=== PATIENT | male | born 1960 | race Caucasian/White ===

== ENCOUNTER → 2018-11-03 | Outpatient (CLI) | payer OTHER | LOC: BMCIMAGING 08:55 | PROVIDERS: ATTEND Orthopaedic Surgery | DX: M25.552 Pain in left hip (principal) ==

== ENCOUNTER → 2018-12-01 | Outpatient (CLI) | payer OTHER | LOC: CIMAGING 07:57 | PROVIDERS: ATTEND Orthopaedic Surgery | DX: Z01.818 Encounter for other preprocedural examination (principal); M16.12 Unilateral primary osteoarthritis, left hip; M48.062 Spinal stenosis, lumbar region with neurogenic claudication; M48.07 Spinal stenosis, lumbosacral region; M51.36 Other intervertebral disc degeneration, lumbar region; M51.37 Other intervertebral disc degeneration, lumbosacral region | CPT/HCPCS: 73700-PO ==

== ENCOUNTER 2018-12-13 07:18 | Inpatient (IN) | payer OTHER ==
--- NOTE | 2018-12-13 06:42 | PDIAF ---
- Diagnosis Diagnosis: left hip djd Code Status: Full Code - Medication Management Discharge Medications: electronically signed and located in the Home Medication List. - Orders Services needed: Home Care, Physical Therapy Home Care Face to Face: I certify that this patient was under my care and that I had the required aofa-qm-wfch encounter meeting the encounter requirements on the discharge day. My findings support the fact that the patient is homebound as defined in Home Care Face to Face Continued: CMS Chapter 7 Medicare Benefits Manual 30.1.1 , The condition of the patient is such that there exists a normal inability to leave home and consequently, leaving home would require a considerable and taxing effort. Diet Recommendation: no restrictions on diet Diet Texture: Regular Texture Diet Additional Instructions: TOTAL JOINT ARTHROPLASTY DISCHARGE INSTRUCTIONS 1. Your surgeon follows the [facility] protocol for reducing your risk of DVT (blood clots) following surgery. Medication will be ordered to prevent blood clots. A sudden increase in calf pain and/or swelling could indicate a blood clot in your leg. If this occurs, please call your surgeon or his/her facility assistant. An ultrasound of the leg may be necessary to diagnose a blood clot. If you have conditions that make you a higher risk for blood clots, your surgeon may use more aggressive ways to prevent them. Notify your surgeon if you think you are a high risk for blood clots. 2. Wear your white surgical stockings (RODNEY hose) for 2 weeks. This decreases your swelling and may help prevent blood clots. It is ok to remove RODNEY hose at night time to give your legs a break. 3. Swelling and bruising in the surgical leg is common. If you feel that it is excessive, please notify your surgeon. 4. Elevate your surgical leg with the ankle above the hip several times every day. Please keep the leg straight when you elevate by putting pillows under your foot. Do not put pillows under your knee. This will make being able to fully straighten more difficult. This is uncomfortable, but try to do it as much as possible. 5. For total knee replacements use compressive wrap on your knee for 3-5 days after surgery, then you can discontinue it. 6. Use a walker or crutches for 1-2 weeks. Progress your weight-bearing as tolerated. You may start to use a cane when you feel stable and safe. 7. You will receive physical therapy instructions in the hospital. Continue those exercises at home. There are additional exercises in the total joint booklet you were given before surgery. Outpatient physical therapy will begin 7- 10 days after surgery. Please schedule this in advance. 8. Use ice on your knee at least 3-5 times every day for 30 minutes. This helps reduce pain and swelling. Also use it at night before falling asleep. 9. Leave your surgical dressing in place for 2 weeks. Your dressing is water resistant, but not waterproof. Cover it with Saran Wrap or Pcmjf-e-Rvie before showering. You may shower as soon as you feel safe entering a shower. If you notice bleeding from your incision 2 or 3 days after surgery, please notify your surgeon. 10. Due to narcotics, decreased activity and altered diet, most patients experience constipation after surgery. Use wwbw-xwq-lztyusr stool softeners while you are on narcotics. 11. You may drive a car when you are comfortable bearing weight, have good muscular control of your leg and are off narcotics. This usually occurs 2-4 weeks after surgery, depending on which leg was operated on. 12. If there are questions not addressed here, please refer the [facility] book given for more information. If you still have questions, please contact your surgeon s office. 13. If you have a life-threatening emergency, please call 911 and go to the emergency room immediately. For non-life threatening emergencies, please call your physicians office for advice before going to the emergency room. - Follow Up Care Current Providers and Referrals: Lisa Adamson MD [Primary Care Provider] - Taras Lowery MD [Medical Doctor] -
--- NOTE | 2018-12-13 06:42 | PDHPUP ---
History & Physical Update H&P update statement: This history and physical update is based on an assessment of the patient which was completed after admission or registration (within 24 hours), but prior to the surgery/procedure. H&P update: no change in patient's condition since H&P completed
[~2018-12-13 07:18] MED LIST: ROPIVACAINE 0.2% 80 MG, EPINEPHrine 0.2 MG, KETOROLAC TROMETHAMINE 30 MG in SYRINGE 0 ML IU ONE; TRANEXAMIC ACID 1,000 MG in NS 100 ML IV ONE
[2018-12-13] MEDS ORDERED: ACETAMINOPHEN 325 MG TAB PO ONE (07:47)
[2018-12-13] MEDS ORDERED: ceFAZolin 3 GM in D5W 100 ML IV ONE (07:47)
[2018-12-13] MEDS ORDERED: FAMOTIDINE 20 MG TAB PO ONE (07:47)
[2018-12-13] MEDS ORDERED: LR 1,000 ML IV ONE (07:47)
[2018-12-13] MEDS ORDERED: ceFAZolin 2 GM/DEXTROSE 100 ML IV ONE (08:00)
[2018-12-13] MEDS ORDERED: MIDAZOLAM 2 MG/2 ML VIAL IVP ONE (08:51)
[2018-12-13] MEDS ORDERED: ceFAZolin 1 GM/5 ML SYR ONE (09:16)
[2018-12-13] MEDS ORDERED: PROPOFOL/EMULSION 500 MG/50 ML BOTTLE IV ONE ×2 (09:31→11:44)
[2018-12-13] MEDS ORDERED: BUPIVACAINE/DEXTROSE 7.5MG/ML 2 ML SPINAL AMP SP ONE (09:35)
--- NOTE | 2018-12-13 09:35 | PDANEPAE ---
ANE Past Medical History - Cardiovascular History Hx Hypertension: No Hx Arrhythmias: No Hx Chest Pain: No Hx Coronary Artery / Peripheral Vascular Disease: No Hx CHF / Valvular Disease: No Hx Palpitations: No - Pulmonary History Hx COPD: No Hx Asthma/Reactive Airway Disease: No Hx Recent Upper Respiratory Infection: No Hx Oxygen in Use at Home: No Hx Sleep Apnea: No Sleep Apnea Screening Result - Last Documented: Negative - Neurologic History Hx Cerebrovascular Accident: No Hx Seizures: No Hx Dementia: No - Endocrine History Hx Diabetes: No - Renal History Hx Renal Disorders: No Renal History Comment: PASSED KIDNEY STONE 09/2017 - Liver History Hx Hepatic Disorders: No - Neurological & Psychiatric Hx Hx Neurological and Psychiatric Disorders: No - Cancer History Hx Cancer: Yes Cancer History Comment: MELANOMA - Congenital Disorder History Hx Congenital Disorders: No - GI History Hx Gastrointestinal Disorders: Yes Gastrointestinal History Comment: HX OF COLON POLYPS - Other Health History Other Health History: OSTEOARTHRITIS - Chronic Pain History Chronic Pain: Yes (LT HIP) - Surgical History Prior Surgeries: LT KNEE ACL. LT KNEE SCOPE. REMVL FACIAL MELANOMA/WITH SN REMVL LT SIDE OF NECK. LUMBAR GINA X2. ANE Review of Systems Review of Systems: - Exercise capacity METS (RN): 5 METS ANE Patient History - Allergies Allergies/Adverse Reactions: morphine Allergy (Verified 11/19/18 09:55) Itching bees Allergy (Uncoded 11/19/18 09:55) - Home Medications Home medications: home medication list seen and reviewed Home Medications: Acetaminophen [Tylenol 325mg (*)] 325 mg PO Q6 PRN 11/19/18 [Last Taken 12/12/18 ] Cholecalciferol Vit D3 [Vitamin D3 (*)] 1,000 units PO DAILY 11/19/18 [Last Taken 12/12/18] Ibuprofen [Motrin (*)] 200 mg PO DAILY PRN 11/19/18 [Last Taken 1 Week Ago ~] oxyCODONE/APAP 5/325 [Percocet 5/325 (*)] 1 - 2 tab PO Q4-6PRN PRN 11/26/18 [ Last Taken 12/12/18] - NPO status NPO Since - Liquids (Date): 12/12/18 NPO Since - Liquids (Time): 23:30 NPO Since - Solids (Date): 12/12/18 NPO Since - Solids (Time): 23:30 - Smoking Hx Smoking Status: Never smoked ANE Labs/Vital Signs - Labs - CBC Platelet Count: 268 - Vital Signs Vital Signs: reviewed preoperatively; see RN documention for details Blood Pressure: 108/73 Heart Rate: 63 Respiratory Rate: 95 Height: 180.34 cm Weight: 83.915 kg ANE Physical Exam - Airway Neck exam: FROM Mallampati Score: Class 1 Mouth exam: normal dental/mouth exam - Pulmonary Pulmonary: clear to auscultation - Cardiovascular Cardiovascular: regular rate and rhythym - ASA Status ASA Status: II ANE Anesthesia Plan Anesthesia Plan: spinal
--- NOTE | 2018-12-13 10:08 | PDGENHP ---
History & Physical Chief Complaint: left hip djd History of Present Illness: pain in hip Pertinent Past, Social, Family History: none. see chart Cardiorespiratory Assessment: demetra. good
[2018-12-13] MEDS ORDERED: ePHEDrine SULFATE 25 MG/5 ML SYR ONE (10:58)
[2018-12-13] MEDS ORDERED: PHENYLEPHRINE HCL 100 MCG/ML SYR ONE (11:16)
[2018-12-13] MEDS ORDERED: LACTULOSE 20 GM/30 ML UDCUP PO PRN (12:30)
[2018-12-13] MEDS ORDERED: POLYETHYLENE GLYCOL 3350 17 GM PKT PO PRN (12:30)
[2018-12-13] MEDS ORDERED: MAGNESIUM HYDROXIDE 30 ML UDCUP PO PRN (12:30)
[2018-12-13] MEDS ORDERED: PROMETHAZINE HCL 25 MG/ML INJ IVP PRN (12:30)
[2018-12-13] MEDS ORDERED: ONDANSETRON 4 MG/2 ML VIAL IVP PRN (12:30)
[2018-12-13] MEDS ORDERED: ONDANSETRON DISINTEGRATING 4 MG TAB PO PRN (12:30)
[2018-12-13] MEDS ORDERED: DIPHENOXYLATE/ATROPINE LOMOTIL 1 TAB PO PRN (12:30)
[2018-12-13] MEDS ORDERED: LR 1,000 ML IV SCH (12:30)
[2018-12-13] MEDS ORDERED: BISACODYL 10 MG SUPP PR PRN (12:30)
[2018-12-13] MEDS ORDERED: PROMETHAZINE HCL 25 MG SUPPR PR PRN (12:30)
[2018-12-13] MEDS ORDERED: diphenhydrAMINE 25 MG CAP PO PRN (12:30)
[2018-12-13] MEDS ORDERED: METOCLOPRAMIDE 10 MG/2 ML VIAL IVP PRN (12:30)
--- NOTE | 2018-12-13 12:30 | POSTOPPROG ---
Post Op Note Date of Operation: 12/13/18 Surgeon: Taras Lowery Human Resource Adviser: camille Anesthesiologist: joana Anesthesia: Spinal Pre-op Diagnosis: left hip djd Post-op Diagnosis: same Indication: same Procedure: left demetra Inf/Abcess present in the surg proc area at time of surgery?: No Depth: Deep Incisional (Fascial) EBL: 100-500 Drains: Hemovac
[2018-12-13] MEDS ORDERED: ONDANSETRON 4 MG/2 ML VIAL ONE (13:14)
--- NOTE | 2018-12-13 13:36 | POSTANESTH ---
Post Anesthetic Evaluation Cardiovascular Status: Normal, Stable Respiratory Status: Normal, Stable Level of Consciousness/Mental Status: Can Participate in Eval Pain Control: Adequate, Prn Tx Ordered Nausea/Vomiting Control: Adequate, Prn Tx Ordered Complications Possibly Related to Anesthesia: None Noted
--- NOTE | 2018-12-13 14:51 | PDMN ---
Medical Necessity Medical necessity: [facility] [place] S560 hip arthroplasty IPO OP L AL -- [id number] JEROME FROM 12/13-12/15
[2018-12-13] MEDS: oxyCODONE IR 5 MG TAB PO PRN ×3 (16:35→22:56)
[2018-12-13] MEDS: TRANEXAMIC ACID 650 MG TAB PO SCH (17:21)
[2018-12-13] MEDS: CYCLOBENZAPRINE 10 MG TAB PO PRN (17:27)
[2018-12-13] MEDS: ACETAMINOPHEN 325 MG TAB PO SCH (18:27)
[2018-12-13] MEDS: ceFAZolin 2 GM/DEXTROSE 100 ML IV SCH (18:28)
[2018-12-13] MEDS: SENNOSIDES/DOCUSATE SODIUM TAB PO SCH (20:34)
[2018-12-13] MEDS: FAMOTIDINE 20 MG TAB PO SCH (20:36)
[2018-12-13] MEDS: traMADol 50 MG TAB PO PRN (20:36)
[2018-12-13] MEDS: ASPIRIN 325 MG TAB PO SCH (20:36)
[2018-12-13] MEDS: TEMAZEPAM 15 MG CAP PO PRN (22:58)
[2018-12-14] MEDS: ACETAMINOPHEN 325 MG TAB PO SCH ×3 (00:46→14:13)
[2018-12-14] MEDS: TRANEXAMIC ACID 650 MG TAB PO SCH ×2 (00:46→08:27)
[2018-12-14] MEDS: TEMAZEPAM 15 MG CAP PO PRN (00:46)
[2018-12-14] MEDS: ceFAZolin 2 GM/DEXTROSE 100 ML IV SCH (02:07)
[2018-12-14] MEDS: oxyCODONE IR 5 MG TAB PO PRN ×3 (02:07→10:27)
--- NOTE | 2018-12-14 07:47 | PDIAF ---
- Diagnosis Diagnosis: left hip djd Code Status: Full Code - Medication Management Discharge Medications: electronically signed and located in the Home Medication List. - Orders Services needed: Home Care, Physical Therapy Home Care Face to Face: I certify that this patient was under my care and that I had the required tdap-qz-qibl encounter meeting the encounter requirements on the discharge day. My findings support the fact that the patient is homebound as defined in Home Care Face to Face Continued: CMS Chapter 7 Medicare Benefits Manual 30.1.1 , The condition of the patient is such that there exists a normal inability to leave home and consequently, leaving home would require a considerable and taxing effort. Diet Recommendation: no restrictions on diet Diet Texture: Regular Texture Diet Additional Instructions: TOTAL JOINT ARTHROPLASTY DISCHARGE INSTRUCTIONS 1. Your surgeon follows the [facility] protocol for reducing your risk of DVT (blood clots) following surgery. Medication will be ordered to prevent blood clots. A sudden increase in calf pain and/or swelling could indicate a blood clot in your leg. If this occurs, please call your surgeon or his/her housing assistant property manager. An ultrasound of the leg may be necessary to diagnose a blood clot. If you have conditions that make you a higher risk for blood clots, your surgeon may use more aggressive ways to prevent them. Notify your surgeon if you think you are a high risk for blood clots. 2. Wear your white surgical stockings (RODNEY hose) for 2 weeks. This decreases your swelling and may help prevent blood clots. It is ok to remove RODNEY hose at night time to give your legs a break. 3. Swelling and bruising in the surgical leg is common. If you feel that it is excessive, please notify your surgeon. 4. Elevate your surgical leg with the ankle above the hip several times every day. Please keep the leg straight when you elevate by putting pillows under your foot. Do not put pillows under your knee. This will make being able to fully straighten more difficult. This is uncomfortable, but try to do it as much as possible. 5. For total knee replacements use compressive wrap on your knee for 3-5 days after surgery, then you can discontinue it. 6. Use a walker or crutches for 1-2 weeks. Progress your weight-bearing as tolerated. You may start to use a cane when you feel stable and safe. 7. You will receive physical therapy instructions in the hospital. Continue those exercises at home. There are additional exercises in the total joint booklet you were given before surgery. Outpatient physical therapy will begin 7- 10 days after surgery. Please schedule this in advance. 8. Use ice on your knee at least 3-5 times every day for 30 minutes. This helps reduce pain and swelling. Also use it at night before falling asleep. 9. Leave your surgical dressing in place for 2 weeks. Your dressing is water resistant, but not waterproof. Cover it with Saran Wrap or Tpcsy-h-Axco before showering. You may shower as soon as you feel safe entering a shower. If you notice bleeding from your incision 2 or 3 days after surgery, please notify your surgeon. 10. Due to narcotics, decreased activity and altered diet, most patients experience constipation after surgery. Use dejm-bqj-jxleldx stool softeners while you are on narcotics. 11. You may drive a car when you are comfortable bearing weight, have good muscular control of your leg and are off narcotics. This usually occurs 2-4 weeks after surgery, depending on which leg was operated on. 12. If there are questions not addressed here, please refer the [facility] book given for more information. If you still have questions, please contact your surgeon s office. 13. If you have a life-threatening emergency, please call 911 and go to the emergency room immediately. For non-life threatening emergencies, please call your physicians office for advice before going to the emergency room. - Follow Up Care Current Providers and Referrals: Lisa Adamson MD [Primary Care Provider] - Taras Lowery MD [Medical Doctor] -
--- NOTE | 2018-12-14 07:49 | SOAPPROG ---
SOAP Progress Note Assessment/Plan: Assessment: s/p demetra Plan:wbat anterior hip precautions pain control f/u at two weeks seek attn for increasing complaints dvt precautions reviewed 12/14/18 07:47 Subjective: pain no cp or sob toñito po Objective: Vital Signs Temp Pulse Resp BP Pulse Ox 36.6 C 71 16 99/60 L 94 12/13/18 23:20 12/13/18 23:20 12/13/18 23:20 12/13/18 23:20 12/13/18 23:20 Laboratory Results 12/14/18 04:30 12/13/18 12/14/18 12/15/18 05:59 05:59 05:59 Intake Total 1340 Output Total 2098 130 Balance -758 -130 dressing intact intact pf,df,ehl toes warm and pink neg homans stephanie xrays anatomic alignement no fx or lucency ICD10 Worksheet Patient Problems: Problems Problem Status Onset Hip arthritis Acute - ICD10 Problem Qualifiers (1) Hip arthritis
[2018-12-14 08:12] VITALS: BP 103/70
[2018-12-14] MEDS: SENNOSIDES/DOCUSATE SODIUM TAB PO SCH (08:27)
[2018-12-14] MEDS: FAMOTIDINE 20 MG TAB PO SCH (08:27)
[2018-12-14] MEDS: ASPIRIN 325 MG TAB PO SCH (08:28)
[2018-12-14] MEDS: traMADol 50 MG TAB PO PRN (08:34)
[2018-12-14] MEDS: CYCLOBENZAPRINE 10 MG TAB PO PRN (10:36)
--- NOTE | 2018-12-14 13:48 | ASMTLACE ---
LACE Length of stay for Answers: 2 days current admission Acuity / Level of Answers: Yes Care: Did the patient have an inpatient admission? Comorbidities - select Answers: Opioid dependence all that apply / Chronic pain # of Emergency department Answers: 0 visits in the last 6 months Score: 9 Date Signed: 12/14/2018 01:44 PM Electronically Signed By:VICENTA Bahena
--- NOTE | 2018-12-14 13:50 | ASMTCMCOM ---
CM Note CM Note Notes: Pt had planned hip surgery. Pt medically stable for d/c with [facility] PT. Orders to be obtained via [facility]. Pt d/c address/phone verified. Date Signed: 12/14/2018 01:46 PM Electronically Signed By:VICENTA Bahena
--- NOTE | 2018-12-14 15:04 | ASDISCHSUM ---
Discharge Information Plan Status:Home with Home Health Medically Cleared to Leave: Discharge Date:12/14/2018 02:58 PM CM D/C Disposition: ADT D/C Disposition:Home Health Service Projected Discharge Date:12/14/2018 11:00 AM Transportation at D/C: Discharge Delay Reason: Follow-Up Date:12/14/2018 11:00 AM Discharge Slot: Final Diagnosis: Placement Information Referral Type:*Home Health Care Services Referral ID:[id number] Provider Name:[facility] Address 1:[address] Address 2: City:[place] Selection Factors: State:[place] Patient Contact Information Contact Name:LAUREN Relationship: Address:[address] [place] [address] Work Phone: City:[place] Alternate Phone: State/Zip Code:[place] [address] Email: Financial Information Financial Class:[employer] Primary Plan Desc:[facility] Primary Plan Number:[id number] Secondary Plan Desc: Secondary Plan Number: Assessment Information LACE LACE Length of stay for Answers: 2 days current admission Acuity / Level of Answers: Yes Care: Did the patient have an inpatient admission? Comorbidities - select Answers: Opioid dependence all that apply / Chronic pain # of Emergency department Answers: 0 visits in the last 6 months Score: 9 Date Signed: 12/14/2018 01:44 PM Electronically Signed By:VICENTA Bahena [facility] CM Progress Note CM Note CM Note Notes: Pt had planned hip surgery. Pt medically stable for d/c with [facility] PT. Orders to be obtained via [facility]. Pt d/c address/phone verified. Date Signed: 12/14/2018 01:46 PM Electronically Signed By:VICENTA Bahena Intervention Information
== END 2018-12-14 14:58 | disposition home health service (06) | DRG 470 ==
LOC: F1N 07:18 → F3N 14:09
PROVIDERS: ADMIT Orthopaedic Surgery; ATTEND Orthopaedic Surgery
PROC: 0SRB04Z Replacement of Left Hip Joint with Ceramic on Polyethylene Synthetic Substitute, Open Approach (ICD-10-PCS; principal; 2018-12-13 09:45)
DX: M16.12 Unilateral primary osteoarthritis, left hip (principal)
CPT/HCPCS: 97116-GP; 97161-GP; 97165-GO; 97530-GP; 97535-GO; J0171; J0690; J1885; J2250; J2370; J2405; J2704; J2795

== ENCOUNTER → 2018-12-16 | Outpatient (CLI) | payer OTHER | LOC: BMCIMAGING 08:25 | PROVIDERS: ATTEND Orthopaedic Surgery | DX: Z47.1 Aftercare following joint replacement surgery (principal); Z96.642 Presence of left artificial hip joint ==

== ENCOUNTER 2018-12-17 07:39 | Inpatient (IN) | payer OTHER ==
--- NOTE | 2018-12-17 06:22 | PDGENHP ---
History & Physical Chief Complaint: left hip pain History of Present Illness: pain across left hip following demetra with subsidence of 3 mm of femoral stem on repeat xray Pertinent Past, Social, Family History: see chart Relevant Physical Exam: 3 mm short left lower ext. incision well healed. intact pf,df,ehl. toes warm and pink Cardiorespiratory Assessment: good
--- NOTE | 2018-12-17 06:23 | PDIAF ---
- Diagnosis Diagnosis: left demetra Code Status: Full Code - Medication Management Discharge Medications: electronically signed and located in the Home Medication List. - Orders Services needed: Home Care, Physical Therapy Home Care Face to Face: I certify that this patient was under my care and that I had the required ihbv-wt-qurv encounter meeting the encounter requirements on the discharge day. My findings support the fact that the patient is homebound as defined in Home Care Face to Face Continued: CMS Chapter 7 Medicare Benefits Manual 30.1.1 , The condition of the patient is such that there exists a normal inability to leave home and consequently, leaving home would require a considerable and taxing effort. Diet Recommendation: no restrictions on diet Diet Texture: Regular Texture Diet Additional Instructions: TDWB ONLY ANTERIOR HIP PRECAUTIONS otherwise: TOTAL JOINT ARTHROPLASTY DISCHARGE INSTRUCTIONS 1. Your surgeon follows the [facility] protocol for reducing your risk of DVT (blood clots) following surgery. Medication will be ordered to prevent blood clots. A sudden increase in calf pain and/or swelling could indicate a blood clot in your leg. If this occurs, please call your surgeon or his/her home care assistant. An ultrasound of the leg may be necessary to diagnose a blood clot. If you have conditions that make you a higher risk for blood clots, your surgeon may use more aggressive ways to prevent them. Notify your surgeon if you think you are a high risk for blood clots. 2. Wear your white surgical stockings (RODNEY hose) for 2 weeks. This decreases your swelling and may help prevent blood clots. It is ok to remove RODNEY hose at night time to give your legs a break. 3. Swelling and bruising in the surgical leg is common. If you feel that it is excessive, please notify your surgeon. 4. Elevate your surgical leg with the ankle above the hip several times every day. Please keep the leg straight when you elevate by putting pillows under your foot. Do not put pillows under your knee. This will make being able to fully straighten more difficult. This is uncomfortable, but try to do it as much as possible. 5. For total knee replacements use compressive wrap on your knee for 3-5 days after surgery, then you can discontinue it. 6. Use a walker or crutches for 1-2 weeks. Progress your weight-bearing as tolerated. You may start to use a cane when you feel stable and safe. 7. You will receive physical therapy instructions in the hospital. Continue those exercises at home. There are additional exercises in the total joint booklet you were given before surgery. Outpatient physical therapy will begin 7- 10 days after surgery. Please schedule this in advance. 8. Use ice on your knee at least 3-5 times every day for 30 minutes. This helps reduce pain and swelling. Also use it at night before falling asleep. 9. Leave your surgical dressing in place for 2 weeks. Your dressing is water resistant, but not waterproof. Cover it with Saran Wrap or Faxba-g-Lvmh before showering. You may shower as soon as you feel safe entering a shower. If you notice bleeding from your incision 2 or 3 days after surgery, please notify your surgeon. 10. Due to narcotics, decreased activity and altered diet, most patients experience constipation after surgery. Use ihnx-cra-tgudkqf stool softeners while you are on narcotics. 11. You may drive a car when you are comfortable bearing weight, have good muscular control of your leg and are off narcotics. This usually occurs 2-4 weeks after surgery, depending on which leg was operated on. 12. If there are questions not addressed here, please refer the [facility] book given for more information. If you still have questions, please contact your surgeon s office. 13. If you have a life-threatening emergency, please call 911 and go to the emergency room immediately. For non-life threatening emergencies, please call your physicians office for advice before going to the emergency room. - Follow Up Care Current Providers and Referrals: Lisa Adamson MD [Primary Care Provider] - Taras Lowery MD [Medical Doctor] -
[~2018-12-17 07:39] MED LIST changes: +ROPIVACAINE 0.2% 80 MG, EPINEPHrine 0.2 MG, KETOROLAC TROMETHAMINE 30 MG, morphINE 10 M... IU ONE
[2018-12-17] MEDS ORDERED: FAMOTIDINE 20 MG TAB PO ONE (07:49)
[2018-12-17] MEDS ORDERED: ceFAZolin 2 GM/DEXTROSE 100 ML IV ONE (07:49)
[2018-12-17] MEDS ORDERED: ACETAMINOPHEN 325 MG TAB PO ONE (07:49)
[2018-12-17] MEDS ORDERED: LR 1,000 ML IV ONE (07:51)
[2018-12-17] MEDS ORDERED: POLYMYXIN B SULFATE 500,000 UNIT/10 ML SYR IRR ONE (08:16)
[2018-12-17] MEDS ORDERED: BACITRACIN 50,000 UNITS/10 ML SYR IRR ONE (08:16)
[2018-12-17] MEDS ORDERED: fentaNYL 250 MCG/5 ML INJ ONE (09:29)
[2018-12-17] MEDS ORDERED: PROPOFOL/EMULSION 500 MG/50 ML BOTTLE IV ONE (09:29)
[2018-12-17] MEDS ORDERED: MIDAZOLAM 2 MG/2 ML VIAL ONE (09:31)
[2018-12-17] MEDS ORDERED: BUPIVACAINE/DEXTROSE 7.5MG/ML 2 ML SPINAL AMP SP ONE (09:55)
[2018-12-17] MEDS ORDERED: HYDROmorphONE/DILAUDID 1 MG/ML INJ IVP PRN (10:37)
[2018-12-17] MEDS ORDERED: fentaNYL 100 MCG/2 ML INJ IVP PRN (10:37)
[2018-12-17] MEDS ORDERED: LABETALOL HCL 5 MG/ML 20 ML MDV IVP PRN (10:37)
[2018-12-17] MEDS ORDERED: LR 500 ML IV PRN (10:37)
[2018-12-17] MEDS ORDERED: NALOXONE HCL 0.4 MG/ML INJ IVP PRN (10:37)
[2018-12-17] MEDS ORDERED: ONDANSETRON 4 MG/2 ML VIAL IVP PRN ×2 (10:37→13:00)
[2018-12-17] MEDS ORDERED: MEPERIDINE 25 MG/0.5 ML AMP IVP PRN (10:37)
[2018-12-17] MEDS ORDERED: DEXAMETHASONE 4 MG/ML VIAL IVP PRN (10:37)
[2018-12-17] MEDS ORDERED: HYDROCODONE/APAP 5/325 TAB PO PRN (10:37)
[2018-12-17] MEDS ORDERED: MIDAZOLAM 2 MG/2 ML VIAL IVP ONE (10:39)
--- NOTE | 2018-12-17 10:41 | PDANEPAE ---
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 Otherwise healthy. ANE Past Medical History - Cardiovascular History Hx Hypertension: No Hx Arrhythmias: No Hx Chest Pain: No Hx Coronary Artery / Peripheral Vascular Disease: No Hx CHF / Valvular Disease: No Hx Palpitations: No - Pulmonary History Hx COPD: No Hx Asthma/Reactive Airway Disease: No Hx Recent Upper Respiratory Infection: No Hx Oxygen in Use at Home: No Hx Sleep Apnea: No Sleep Apnea Screening Result - Last Documented: Negative - Neurologic History Hx Cerebrovascular Accident: No Hx Seizures: No Hx Dementia: No - Endocrine History Hx Diabetes: No - Renal History Hx Renal Disorders: No Renal History Comment: PASSED KIDNEY STONE 09/2017 - Liver History Hx Hepatic Disorders: No - Neurological & Psychiatric Hx Hx Neurological and Psychiatric Disorders: No - Cancer History Hx Cancer: Yes Cancer History Comment: MELANOMA - Congenital Disorder History Hx Congenital Disorders: No - GI History Hx Gastrointestinal Disorders: Yes Gastrointestinal History Comment: HX OF COLON POLYPS - Other Health History Other Health History: OSTEOARTHRITIS. wears glasses - Chronic Pain History Chronic Pain: Yes (LT HIP) - Surgical History Prior Surgeries: 12/13/18 left hip arthroplasty with Repine. LT KNEE ACL. LT KNEE SCOPE. REMVL FACIAL MELANOMA/WITH SN REMVL LT SIDE OF NECK. LUMBAR GIAN X2. ANE Review of Systems Review of systems is: negative Review of Systems: - Exercise capacity METS (RN): 5 METS ANE Patient History - Allergies Allergies/Adverse Reactions: morphine Allergy (Verified 12/16/18 16:03) Itching bees Allergy (Uncoded 12/16/18 16:03) - Home Medications Home Medications: Acetaminophen [Tylenol 325mg (*)] 325 mg PO Q6 PRN 11/19/18 [Last Taken 01:00] Cholecalciferol Vit D3 [Vitamin D3 (*)] 1,000 units PO DAILY 11/19/18 [Last Taken 12/12/18] Ibuprofen [Motrin (*)] 200 mg PO DAILY PRN 11/19/18 [Last Taken 12/14/18] oxyCODONE/APAP 5/325 [Percocet 5/325 (*)] 1 - 2 tab PO Q4-6PRN PRN 11/26/18 [ Last Taken 12/12/18] - NPO status NPO Since - Liquids (Date): 12/17/18 NPO Since - Liquids (Time): 05:30 NPO Since - Solids (Date): 12/16/18 NPO Since - Solids (Time): 22:30 - Smoking Hx Smoking Status: Never smoked - Family Anes Hx Family Hx Anesthesia Complications: none ANE Labs/Vital Signs - Vital Signs Blood Pressure: 111/75 Heart Rate: 82 Respiratory Rate: 18 O2 Sat (%): 92 Height: 180.34 cm Weight: 83.915 kg ANE Physical Exam - Airway Neck exam: FROM Mallampati Score: Class 2 Mouth exam: normal dental/mouth exam - Pulmonary Pulmonary: no respiratory distress - Cardiovascular Cardiovascular: regular rate and rhythym - ASA Status ASA Status: I ANE Anesthesia Plan Anesthesia Plan: spinal
[2018-12-17] MEDS ORDERED: ONDANSETRON DISINTEGRATING 4 MG TAB PO PRN (13:00)
[2018-12-17] MEDS ORDERED: DIPHENOXYLATE/ATROPINE LOMOTIL 1 TAB PO PRN (13:00)
[2018-12-17] MEDS ORDERED: POLYETHYLENE GLYCOL 3350 17 GM PKT PO PRN (13:00)
[2018-12-17] MEDS ORDERED: METOCLOPRAMIDE 10 MG/2 ML VIAL IVP PRN (13:00)
[2018-12-17] MEDS ORDERED: CYCLOBENZAPRINE 10 MG TAB PO PRN (13:00)
[2018-12-17] MEDS ORDERED: LACTULOSE 20 GM/30 ML UDCUP PO PRN (13:00)
[2018-12-17] MEDS ORDERED: PROMETHAZINE HCL 25 MG/ML INJ IVP PRN (13:00)
[2018-12-17] MEDS ORDERED: LR 1,000 ML IV SCH (13:00)
[2018-12-17] MEDS ORDERED: BISACODYL 10 MG SUPP PR PRN (13:00)
[2018-12-17] MEDS ORDERED: PROMETHAZINE HCL 25 MG SUPPR PR PRN (13:00)
[2018-12-17] MEDS ORDERED: MAGNESIUM HYDROXIDE 30 ML UDCUP PO PRN (13:00)
[2018-12-17] MEDS ORDERED: diphenhydrAMINE 25 MG CAP PO PRN (13:00)
[2018-12-17] MEDS ORDERED: TEMAZEPAM 15 MG CAP PO PRN (13:00)
--- NOTE | 2018-12-17 13:05 | POSTOPPROG ---
Post Op Note Date of Operation: 12/17/18 Surgeon: Taras Lowery Microfilm Processor: camille Anesthesiologist: don Anesthesia: Spinal Pre-op Diagnosis: failed left demetra Post-op Diagnosis: same Indication: same Procedure: revision femoral component left hip Inf/Abcess present in the surg proc area at time of surgery?: No Depth: Deep Incisional (Fascial) EBL: 100-500 Drains: Hemovac
--- NOTE | 2018-12-17 13:38 | PDMN ---
Medical Necessity Medical necessity: [facility] [place] S560 Hip Arthroplasty, A-2 days: 58 yo s/p total hip revision for recent failed AL. [facility] IP only. Admit IP status.
[2018-12-17] MEDS: oxyCODONE IR 5 MG TAB PO PRN ×4 (15:29→23:40)
[2018-12-17] MEDS: ceFAZolin 2 GM/DEXTROSE 100 ML IV SCH (17:22)
[2018-12-17] MEDS: TRANEXAMIC ACID 650 MG TAB PO SCH ×2 (17:22→20:30)
[2018-12-17] MEDS: HYDROmorphONE/DILAUDID 1 MG/ML INJ IVP PRN (18:30)
[2018-12-17] MEDS: ACETAMINOPHEN 325 MG TAB PO SCH (18:31)
--- NOTE | 2018-12-17 18:44 | SOAPPROG ---
SOAP Progress Note Assessment/Plan: Assessment: s/p revision to left demetra Plan:tdwb precaution dvt precautions pain control - still complaining of buttock and ant thigh pain possible lbp referral 12/17/18 18:40 Subjective: sore across anterior thigh also has slight buttock pain no cp or sob toñito po Objective: Vital Signs Temp Pulse Resp BP Pulse Ox 36.7 C 93 16 106/61 90 L 12/17/18 18:39 12/17/18 18:39 12/17/18 18:39 12/17/18 18:39 12/17/18 18:39 12/16/18 12/17/18 12/18/18 05:59 05:59 05:59 Intake Total 1790 Output Total 400 Balance 1390 dressing intact intact pf,df,ehl toes warm and pink 5/5 strength with pf,df,ehl sensation intact to light touch sp,dp, s,s,pt 2+ dp pulse xrays stable concentric reduction, no fx or lucency ICD10 Worksheet Patient Problems: Problems Problem Status Onset Hip arthritis Acute
[2018-12-17] MEDS: traMADol 50 MG TAB PO PRN (19:09)
[2018-12-17] MEDS: ASPIRIN 325 MG TAB PO SCH (20:29)
[2018-12-17] MEDS: FAMOTIDINE 20 MG TAB PO SCH (20:29)
[2018-12-17] MEDS: SENNOSIDES/DOCUSATE SODIUM TAB PO SCH (20:29)
[2018-12-18] MEDS: ACETAMINOPHEN 325 MG TAB PO SCH ×4 (02:01→18:55)
[2018-12-18] MEDS: ceFAZolin 2 GM/DEXTROSE 100 ML IV SCH ×2 (02:01→18:13)
[2018-12-18] MEDS: traMADol 50 MG TAB PO PRN (02:08)
[2018-12-18] MEDS: oxyCODONE IR 5 MG TAB PO PRN ×3 (02:50→09:49)
[2018-12-18] MEDS: HYDROmorphONE/DILAUDID 1 MG/ML INJ IVP PRN (04:02)
[2018-12-18] MEDS: TRANEXAMIC ACID 650 MG TAB PO SCH (05:58)
[2018-12-18] MEDS: ASPIRIN 325 MG TAB PO SCH (09:06)
[2018-12-18] MEDS: FAMOTIDINE 20 MG TAB PO SCH ×2 (09:06→21:10)
[2018-12-18] MEDS: SENNOSIDES/DOCUSATE SODIUM TAB PO SCH ×2 (09:07→21:10)
--- NOTE | 2018-12-18 10:55 | SOAPPROG ---
SOAP Progress Note Assessment/Plan: Assessment: s/p revision to left demetra Plan:tdwb precaution dvt precautions pain control - still complaining of buttock and ant thigh pain possible lbp referral slight improvement in pain poor tolerance last pm rec additional pt and wean pain meds d/c home tomorrow 12/17/18 18:40 12/18/18 10:51 Subjective: still with pain no cp or sob toñito po no buttocks pain Objective: Vital Signs Temp Pulse Resp BP Pulse Ox 36.7 C 103 H 14 113/78 92 12/18/18 08:00 12/18/18 08:00 12/18/18 08:00 12/18/18 08:00 12/18/18 08:00 Laboratory Results 12/18/18 04:42 12/17/18 12/18/18 12/19/18 05:59 05:59 05:59 Intake Total 2290 Output Total 1140 750 Balance 1150 -750 dressing intact intact pf,df,ehl toes warm and pink neg homans stephanie xrays stable alignment, no fx or lucency ICD10 Worksheet Patient Problems: Problems Problem Status Onset Hip arthritis Acute
--- NOTE | 2018-12-18 14:39 | ASMTCMCOM ---
CM Note CM Note Notes: CM reviewed pt's chart for d/c planning. Pt is a 58 y/o male who came to [facility] for surgery due to failure of past arthroplasty. Yesterday the pt had surgery; a hip arthroplasty with stem exchange and cerclage. PT has recommended home care. CM attempted to talk with pt about home care options, but pt not available. Last discharge he used [facility]; a referral will be made to them again. D/C Plan: [facility] Date Signed: 12/18/2018 02:38 PM Electronically Signed By:Yun Rivera
[2018-12-19] MEDS: ceFAZolin 2 GM/DEXTROSE 100 ML IV SCH ×2 (01:15→09:04)
[2018-12-19] MEDS: ACETAMINOPHEN 325 MG TAB PO SCH ×2 (01:35→06:05)
[2018-12-19 07:49] VITALS: BP 110/70
[2018-12-19] MEDS: SENNOSIDES/DOCUSATE SODIUM TAB PO SCH (07:50)
[2018-12-19] MEDS: FAMOTIDINE 20 MG TAB PO SCH (07:52)
[2018-12-19] MEDS: ASPIRIN 325 MG TAB PO SCH (07:52)
[2018-12-19 08:50] LABS: PLATELET COUNT 290 10^3/uL (150-400)
--- NOTE | 2018-12-19 08:51 | PDIAF ---
- Diagnosis Diagnosis: left demetra Code Status: Full Code - Medication Management Discharge Medications: electronically signed and located in the Home Medication List. - Orders Services needed: Home Care, Physical Therapy Home Care Face to Face: I certify that this patient was under my care and that I had the required [id number] encounter meeting the encounter requirements on the discharge day. My findings support the fact that the patient is homebound as defined in Home Care Face to Face Continued: CMS Chapter 7 Medicare Benefits Manual 30.1.1 , The condition of the patient is such that there exists a normal inability to leave home and consequently, leaving home would require a considerable and taxing effort. Diet Recommendation: no restrictions on diet Diet Texture: Regular Texture Diet Additional Instructions: TOUCH DOWN WEIGHT BEARING ONLY. ANTERIOR HIP PRECAUTIONS otherwise: TOTAL JOINT ARTHROPLASTY DISCHARGE INSTRUCTIONS 1. Your surgeon follows the [facility] protocol for reducing your risk of DVT (blood clots) following surgery. Medication will be ordered to prevent blood clots. A sudden increase in calf pain and/or swelling could indicate a blood clot in your leg. If this occurs, please call your surgeon or his/her medical assistant secretary. An ultrasound of the leg may be necessary to diagnose a blood clot. If you have conditions that make you a higher risk for blood clots, your surgeon may use more aggressive ways to prevent them. Notify your surgeon if you think you are a high risk for blood clots. 2. Wear your white surgical stockings (RODNEY hose) for 2 weeks. This decreases your swelling and may help prevent blood clots. It is ok to remove RODNEY hose at night time to give your legs a break. 3. Swelling and bruising in the surgical leg is common. If you feel that it is excessive, please notify your surgeon. 4. Elevate your surgical leg with the ankle above the hip several times every day. Please keep the leg straight when you elevate by putting pillows under your foot. Do not put pillows under your knee. This will make being able to fully straighten more difficult. This is uncomfortable, but try to do it as much as possible. 5. For total knee replacements use compressive wrap on your knee for 3-5 days after surgery, then you can discontinue it. 6. Use a walker or crutches for 1-2 weeks. Progress your weight-bearing as tolerated. You may start to use a cane when you feel stable and safe. 7. You will receive physical therapy instructions in the hospital. Continue those exercises at home. There are additional exercises in the total joint booklet you were given before surgery. Outpatient physical therapy will begin 7- 10 days after surgery. Please schedule this in advance. 8. Use ice on your knee at least 3-5 times every day for 30 minutes. This helps reduce pain and swelling. Also use it at night before falling asleep. 9. Leave your surgical dressing in place for 2 weeks. Your dressing is water resistant, but not waterproof. Cover it with Saran Wrap or [id number]-Viwr before showering. You may shower as soon as you feel safe entering a shower. If you notice bleeding from your incision 2 or 3 days after surgery, please notify your surgeon. 10. Due to narcotics, decreased activity and altered diet, most patients experience constipation after surgery. Use gkau-ysw-muullym stool softeners while you are on narcotics. 11. You may drive a car when you are comfortable bearing weight, have good muscular control of your leg and are off narcotics. This usually occurs 2-4 weeks after surgery, depending on which leg was operated on. 12. If there are questions not addressed here, please refer the [facility] book given for more information. If you still have questions, please contact your surgeon s office. 13. If you have a life-threatening emergency, please call 911 and go to the emergency room immediately. For non-life threatening emergencies, please call your physicians office for advice before going to the emergency room. - Follow Up Care Current Providers and Referrals: Lisa Adamson MD [Primary Care Provider] - Taras Lowery MD [Medical Doctor] -
--- NOTE | 2018-12-19 08:53 | SOAPPROG ---
SOAP Progress Note Assessment/Plan: Assessment: s/p revision to left demetra Plan:tdwb precaution dvt precautions pain control - still complaining of buttock and ant thigh pain possible lbp referral slight improvement in pain poor tolerance last pm rec additional pt and wean pain meds d/c home today no evidence of infection keep dressing intact seek attn for increasing redness, swelling drainage or discharge 12/17/18 18:40 12/18/18 10:51 12/19/18 08:52 Subjective: sore better sleep last night no cp or sob woke up sweaty last night Objective: Vital Signs Temp Pulse Resp BP Pulse Ox 36.8 C 94 17 110/70 91 L 12/19/18 07:48 12/19/18 07:48 12/19/18 07:48 12/19/18 07:48 12/19/18 07:48 Laboratory Results 12/19/18 04:53 12/18/18 12/19/18 12/20/18 05:59 05:59 05:59 Intake Total 2290 2430 Output Total 1140 1890 Balance 1150 540 dressing intact mod inflammation and bruising large swelling no erythema or drainage intact pf,df,ehl toes warm and pink neg homans stephanie ICD10 Worksheet Patient Problems: Problems Problem Status Onset Hip arthritis Acute
--- NOTE | 2018-12-19 09:15 | ASMTLACE ---
JERMAINE Length of stay for Answers: 2 days current admission Acuity / Level of Answers: Yes Care: Did the patient have an inpatient admission? # of Emergency department Answers: 0 visits in the last 6 months Score: 5 Date Signed: 12/19/2018 09:14 AM Electronically Signed By:Christine Castro RN
--- NOTE | 2018-12-19 09:18 | ASMTDCNOTE ---
Case Management Discharge Discharge Order Complete? Answers: Yes Patient to Obtain Answers: via Family Medications Transportation Arranged Answers: Family/Friends Family Notified Answers: Yes Discharge Comments Notes: [facility] notifed of discharge to home, CM available should needs arise. Date Signed: 12/19/2018 09:18 AM Electronically Signed By:Christine Castro RN
[2018-12-19] MEDS ORDERED: CEPHALEXIN 500 MG CAP PO SCH (12:00)
--- NOTE | 2018-12-27 13:19 | GOP ---
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 PROCEDURE PERFORMED: Revision arthroplasty left total hip with revision of femoral component. FINDINGS: SPECIMENS: To Pathology, none. INDICATIONS: The patient is a 58-year-old gentleman who is known to me. He is recently status post a total hip arthroplasty. He developed protracted pain in the initial postoperative period. Over th e first 2 to 3 days, he developed subsidence of his femoral stem. Given his sharp pain with weightbe aring and apparent subsidence of the femoral stem, I have recommended revision arthroplasty to [facility] [place] for a proximal femoral fracture to place a cerclage cable and revised the femoral stem. I have ou tlined the surgical procedure, risks, benefits, and alternatives at length with him, he wished to pro ceed. Written consent was signed and placed in patient's chart. DESCRIPTION OF PROCEDURE: The patient was identified in the preanesthesia area. The left hip clearl y demarcated as the operative site with an indelible marker. He was given 2 g of Ancef intravenously in route to the operative suite. In the OR, spinal anesthetic was placed. He was positioned in the supine position. Previous ottoniel were removed from the left hip incision. This area was sterilely prepped and draped in usual fashion. Appropriate time-out procedure was carried out. The previous incision was opened. At each level, the incision was copiously irrigated with pulsatile lavage solution. The fascia of the tensor was opened up and this led directly to the hip capsule. A hematoma was evacuated in this area. The hip was dislocated. The stem removed with a disimpaction tool. There was no obvious femoral fracture. There was no split in the medial calcar, and there wa s no perforation on examination of the intramedullary canal. Therefore, decision was made to proceed with cerclage cable going around the proximal opening of the femur superior to the lesser trochanter. This was facilitated with the [employer] cable set. Intraoperative fluoroscopy was used to confirm the cable positioning. This was partially tight ened and the canal was then prepared with additional broaching. The initial stem size was a size 4. This was approach with a 5 and then 6 broach to a stable edge. Intraoperative reduction was carried out and a 36 mm +0 mm neck length head was selected as the final implant. This restored leg lengths . There was no instability with external rotation to 90 degrees in full extension. The trial broach was withdrawn. An initial size 6 and ultimately broaching was carried out to a size 8, so a size 8 stem was impacted across the opening of the trunnion, and prior to full seating, the Dall-Miles cable was tensioned around the broach stem and secured with a crimp. he excess cable was trimmed flush. The stem was then impacted flush with the opening of the trunnion. Additional trialing was carried o nj, and ultimately, a 36 mm +0 mm neck length Biolox head was selected. This was placed across the c leansed trunnion, impacted, and the hip was irrigated and reduced. Leg lengths were equal. There is no instability with external rotation of 90 degrees in extension. The wound was copiously irrigated with pulsatile lavage solution. The tissue was injected with a doug nt cocktail of ropivacaine, Toradol, and epinephrine. The tensor fascia closed using a #0 Vicryl sut ure. A 10-Korean PVC drain had been placed. The subcutaneous tissue closed using 2-0 Monocryl and t he skin was stapled. Sterile dressing was applied with bulky ABD is a pressure-type dressing. The p atient was awakened, taken to recovery room in good, stable condition. TOTAL TOURNIQUET TIME: None. COMPLICATIONS: None. IMPLANTS: Accolade II 127 degree neck angle hip stem size 8, a Dall-Miles cable and sleeve set 2 mm, and a 36 mm +0 mm Biolox head. DISPOSITION: To the recovery room, then the floor. He is touchdown weightbearing, anterior hip prec autions. /[id number]/MODL
--- NOTE | 2018-12-27 13:23 | GDS ---
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 POSTOPERATIVE DIAGNOSIS: Failed left total hip arthroplasty. PROCEDURE: Revision femoral component, left total hip arthroplasty. HISTORY OF PRESENT ILLNESS: The patient is a 58-year-old gentleman who is known to me for previous t otal hip replacement. He developed subsidence of his stem and protracted pain, I therefore recommend ed operative intervention for revision of his femoral component with cerclage cabling, and revision a s necessary. He understood the risks, benefits, alternatives, and wished to proceed. HOSPITAL COURSE: The patient was admitted to the hospital floor after uncomplicated revision arthrop lasty of his femoral stem and cerclage cabling. Postoperatively, he was placed on touchdown weightbe aring precautions. His postoperative course was characterized by issues of pain control; however he progressed slowly with physical therapy. At the time of discharge, he is tolerating an oral diet, pa in is well controlled on oral medicines. He is voiding without difficulty. Dressing is clean, dry, and intact. His components are stable and anatomically positioned. There is no calf swelling or ten derness. No evidence of infection with redness, swelling, drainage, or discharge. DISCHARGE MEDICATIONS: Oxycodone 5 mg 1 to 2 every 6 hours p.r.n. pain, aspirin 325 mg p.o. daily fo r 6 weeks, Zofran 4 mg oral disintegrating tablet 1 p.o. q.8 hours p.r.n. spasm. /[id number]/MODL
== END 2018-12-19 10:01 | disposition home health service (06) | DRG 468 ==
LOC: F3N 07:39
PROVIDERS: ADMIT Orthopaedic Surgery; ATTEND Orthopaedic Surgery
PROC: 0SRS03A Replacement of Left Hip Joint, Femoral Surface with Ceramic Synthetic Substitute, Uncemented, Open Approach (ICD-10-PCS; principal; 2018-12-17 09:15)
PROC: 0SPB0JZ Removal of Synthetic Substitute from Left Hip Joint, Open Approach (ICD-10-PCS; principal; 2018-12-17 09:15)
DX: T84.091A Other mechanical complication of internal left hip prosthesis, initial encounter (principal); T84.84XA Pain due to internal orthopedic prosthetic devices, implants and grafts, initial encounter; G89.29 Other chronic pain; Z85.820 Personal history of malignant melanoma of skin
CPT/HCPCS: 97116-GP; 97162-GP; 97165-GO; C1713; J0171; J0690; J1170; J1885; J2250; J2704; J2795; J3010

== ENCOUNTER → 2019-01-20 | Outpatient (CLI) | payer OTHER | LOC: BMCIMAGING 08:29 | PROVIDERS: ATTEND Orthopaedic Surgery | DX: Z47.1 Aftercare following joint replacement surgery (principal); Z96.642 Presence of left artificial hip joint; M16.11 Unilateral primary osteoarthritis, right hip ==